=== PATIENT | female | born 1990 | race Caucasian/White ===

== ENCOUNTER 2023-11-01 18:51 | Day surgery (SDC) | payer OTHER ==
[~2023-11-01] VITALS: Ht 167.6 cm; Wt 118.0 kg
--- NOTE | 2023-11-01 16:15 | NUR ---
1615PT AMBULATORY TO UNIT FOR SCHEDULED D&C, ACCOMPANIED BY FRIEND. PT CHANGED INTO GOWN AND COMFORTABLE IN BED. 1620THIS RN AT BEDSIDE. DISCUSSES POC WITH PT. PT VERBALIZES UNDERSTANDING AND AGREEMENT. 1625IV STARTED AT THIS TIME IN LEFT ANTECUBITAL. LR RUNNING. 1630PT REPORTS "MISCARRIAGE WAS CONFIRMED ON SATURDAY, ON SATURDAY AT 1900 I HAD CYTOTEC PLACED AT [facility]. ON SATURDAY AT 0100 I WAS IN THE ER. THEY DID A SPECULUM EXAM AND WERE ABLE TO REMOVE THE SAC. THIS MORNING I HAD AN APPOINTMENT, AND ULTRASOUND REVEALED THAT MY CERVIX WAS CLOSED, AND THERE WERE REMANANTS OF THE PLACENTA AND , AND WAS SCHEDULED FOR A D&C." 1635QUESTIONS OFFERED BY PT, AND ANSWERED BY RN AT THIS TIME. 1645[employer] INTERN AT BEDSIDE.
--- NOTE | 2023-11-01 17:25 | NUR ---
1700PT TO OR VIA BED. PT ON OR TABLE. 1705ROOM AND SUPPLIES SET UP FOR D&C. 1710THIS RN PREPS PT FOR D&C AT THIS TIME. 1715-1725D&C PERFORMED PER DR ROLES AT THIS TIME. [id number] ML OF EBL NOTED PER THIS RN AND DR ROLES. 1728PT MOVED TO SURGICAL BED AND TRANSPORTED TO 222 VIA BED. PT TOLERATED PROCEDURE WELL. 1730PT COMPLAINS OF CRAMPING. DR ROLES PUTTING IN ORDERS AT THIS TIME. 1735DR ROLES TELLS THIS RN "PT NEEDS TO EAT AND PEE, AND THEN SHE CAN GO HOME. PT ALREADY PICKED UP PRESCRIBTIONS BEFOREHAND." THIS RN VERBALIZES UNDERSTANDING. 1740PAIN MEDICATIONS GIVEN AT THIS TIME. 1745PT AMBULATORY TO ATTEMPT TO VOID. PT VOIDS <100 MLS. PT EATS LIDA CRACKERS AT THIS TIME. PT VITAL SIGNS STABLE.
[2023-11-01 17:45] VITALS: BP 120/71; PULSE 80
[2023-11-01 18:00] VITALS: BP 121/71; PULSE 73; TEMP 98.4
[2023-11-01 18:15] VITALS: BP 17/73; PULSE 82
[~2023-11-01 18:51] MED LIST: Acetaminophen 500 MG TAB PO SCH; HYDROmorphone 1 MG/1 ML SYRINGE [PACU/SDC ONLY] IV PRN; Ketorolac 60 MG/2 ML VIAL IM ONE; LR 1,000 ML IV SCH; Lidocaine PF 2% (20 MG/ML) 5 ML VIAL ONE; NEXIUM 20MG20 MG PO; Naloxone 0.4 MG/ML VIAL IV PRN; Ondansetron 4 MG/2 ML VIAL IV PRN; Ondansetron 4 MG/2 ML VIAL ONE; PRISTIQ 50 MG T50 MG PO; SYNTHROID 0.0.025 MG PO; fentaNYL 50 MCG/ML 2 ML VIAL ONE; oxyCODONE 5 MG TAB PO PRN
--- NOTE | 2023-11-01 19:40 | NUR ---
Discharge paperwork given to pt who verbalizes her understanding. Pt ambulatory out with this RN and home with friend.
[2023-11-01] MEDS ORDERED: Docusate Sodium 100 MG CAP PO SCH (21:00)
[2023-11-01] MEDS ORDERED: Ibuprofen 800 MG TAB PO SCH (23:33)
== END 2023-11-01 19:40 | disposition home or self-care (01) ==
LOC: LDRO 18:51
DX: O03.4 Incomplete spontaneous abortion without complication (principal); E66.01 Morbid (severe) obesity due to excess calories
CPT/HCPCS: J1885; J2405; J2704; J3010; J7120